=== PATIENT | male | born 1945 | race Caucasian/White ===

== ENCOUNTER 2017-08-02 10:36 | Observation (INO) | payer MEDICARE, OTHER ==
[2017-08-02] MEDS ORDERED: DILTIAZEM HCL 5 MG/ML VIAL IV ONE ×2 (10:52→10:54)
[2017-08-02] MEDS ORDERED: ASPIRIN 325 MG TABLET.DR PO ONE (10:54)
[2017-08-02] MEDS ORDERED: ASPIRIN 325 MG TABLET.DR ONE (10:57)
[2017-08-02] MEDS: NITROGLYCERIN 0.4 MG/TAB BTL SL ONE ×2 (10:57→14:38)
[2017-08-02] MEDS ORDERED: DILTIAZEM HCL 125 MG in DEXTROSE 5 % IN WATER 100 ML IV PRN ×2 (11:03)
[2017-08-02 11:20] LABS: Hematocrit 41.8 % (42.0-52.0); Hemoglobin 15.1 gm/dL (13.5-18.0); Mean Cell Volume 85.8 fl (78-100); Mean Corpuscular Hgb Conc 36.1 g/dl (32-36); Mean Platelet Volume 9.9 fl (6.0-9.5); Neutrophil # 4.6 K/mm3 (1.3-6.0); Neutrophil % 66.1 % (42-75.0); Platelet Count 226 K/mm3 (150-450); Prothrombin Time (Patient) 10.1 Seconds (9.0-11.0); Red Blood Count 4.87 M/mm3 (4.7-6.0); Red Cell Distribution Width 12.3 % (11.5-14.0); White Blood Count 6.9 K/mm3 (4.0-10.5)
[2017-08-02 11:21] LABS: INR 1.01 INR (0.90-1.10)
[2017-08-02 11:32] LABS: Troponin I 0.047 ng/ml (0.00-0.10)
[2017-08-02 11:35] LABS: Albumin * 3.7 gm/dl (3.4-5.0); Anion Gap 14.6 mmol/L (6.8-13.8); BUN/Creatinine Ratio 17.1 (9.0-21.6); Bilirubin, Total 0.6 mg/dL (0.0-1.1); Calcium * 9.1 mg/dL (7.9-10.9); Carbon Dioxide 23.7 mmol/L (24-32.6); Potassium 3.3 mmol/L (3.4-4.6)
--- NOTE | 2017-08-02 12:26 | ERNOTE ---
Chest Pain/Cardiac HPI Date of Service: 08/02/17 Chief Complaint: Chest Pain Time Seen by Provider: 08/02/17 10:50 Source: patient Exam Limitations: no limitations Immunizations: IMMUNIZATION HX History of Influenza Vaccine No Hx Pneumococcal Vaccination No Allergies/Adverse Reactions: Allergies testosterone [From AndroGel] Adverse Reaction (Verified 08/02/17 10:52) Itching Home Medications: HOME MEDICATIONS Amlodipine Besylate 10 mg PO DAILY 12/11/13 [Last Taken 12/12/13 09:00] Atorvastatin Calcium 10 mg PO DAILY 12/11/13 [Last Taken 12/11/13 21:00] Irbesartan [Avapro] 300 mg PO DAILY 12/11/13 [Last Taken 12/12/13 09:00] Metoprolol Tartrate [Lopressor] 50 mg PO BID 12/11/13 [Last Taken 12/12/13 09:00 ] Docusate Sodium [Stool Softener] 1 tab PO DAILY 12/12/13 [Last Taken 12/12/13 09 :00] Menthol/Camphor [Sarna Anti-Itch Lotion] 1 applic .ROUTE HS 12/12/13 [Last Taken 12/11/13 21:00] Multivitamin [Multi-Vitamin Daily] 1 tab PO DAILY 12/12/13 [Last Taken 12/12/13 09:00] Pyridoxine HCl (Vitamin B6) [Vitamin B-6] 1 tab PO DAILY 12/12/13 [Last Taken 09:00] Acetaminophen [Tylenol] 650 mg PO QID PRN #0 tablet 12/13/13 [Last Taken Unknown ] Narrative: Patient presents to the ED with chest tightness and SOB. He also had a headache. This started at 1am. It has been constant since then. He denies anything like this in the past. No fever. No abdominal pain. Has not seen anyone else for this before. Nothing makes it better or worse. He presents here and is noted to have a heart rate in the 160s. He does not feel his heart racing. Never had that before. No radiation of the pain in his chest. No diaphoresis. Timing: constant Severity/Quality: severe Location: central Chest Pain Radiation: no radiation Activities at Onset: none Modifying Factors - Improves: Present: nothing Modifying Factors - Worsens: Present: nothing Nitro Today/Relief: no nitro taken today Aspirin Treatment Today: no aspirin today Associated Symptoms: Present: shortness of breath. Absent: cough, fever/chills , palpitations, back pain Prior Treatment: Denies: recently seen Review of Systems - Review of Systems Constitutional: Absent: fever Respiratory: Present: shortness of breath Cardiology: Present: chest pain Gastrointestinal/Abdominal: Absent: abdominal pain Genitourinary: Absent: dysuria Neurological: Absent: weakness All Other Systems: All systems neg except as marked - Patient's Past Medical History Patient History - Medical: No pertinent hx Patient History - Cardiac/Respiratory: Hypertension, Hyperlipidemia Patient History - Cancer: No Hx of Cancer Patient History - Surgical Procedures: Hernia Repair Patient History - Other: None - Social History Living Situations: home Psych History: No pertinent hx Alcohol Use: none Drug Use: none - Immunizations Hx Pneumococcal Vaccination: No History of Influenza Vaccine: No Physical Exam - Physical Exam General Appearance: Present: alert, no apparent distress Head Exam: Present: normal inspection, no evidence of injury Eye Exam: Normal inspection: bilateral, PERRL: bilateral Ears, Nose, Throat: Present: normal ENT inspection Neck: Present: normal inspection Respiratory: Present: no respiratory distress, normal breath sounds, no accessory muscle use, lungs clear Cardiovascular/Chest: Present: normal peripheral pulses, tachycardia, irregularly irregular Gastrointestinal/Abdominal: Present: normal bowel sounds, nontender, soft Back Exam: Absent: CVA tenderness (R), CVA tenderness (L) Extremity Exam: Present: normal range of motion Neurological Exam: Present: alert, normal mood/affect, no motor/sensory deficits , 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 Absent: motor weakness Skin Exam: Present: normal color, warm/dry ED Progress - Results and Orders Patient's Lab Results:: I have reviewed the patient's lab results. - Vital Signs Patient's Vital Signs:: I have reviewed the patient's vital signs. Vital Signs: Vital Signs 08/02/17 08/02/17 08/02/17 10:48 10:54 10:55 Temperature 36.4 C L Pulse Rate 154 H 163 H 163 H Respiratory 14 16 Rate Blood Pressure 112/80 110/70 110/70 O2 Sat by Pulse 94 96 Oximetry 08/02/17 08/02/17 08/02/17 11:10 11:22 11:30 Temperature Pulse Rate 79 93 99 Respiratory 14 13 12 Rate Blood Pressure 96/59 106/55 113/59 O2 Sat by Pulse 96 97 97 Oximetry 08/02/17 11:45 Temperature Pulse Rate 106 H Respiratory 16 Rate Blood Pressure 104/67 O2 Sat by Pulse 94 Oximetry - EKG EKG read: Interp. by me EKG Comments: A fib RVR with LBBB (Old). No clear evidence of STEMI. - X-Ray X-Ray #1 X-Ray: chest Interpretation: Interp. by me X-ray Comments: I reviewed official CXR radiology report. - Progress/Reassessment Chief Complaint: Chest Pain Progress Note-Subjective: 08/02/17 12:24 HR controlled with IV cardizem and Cardizem drip. 10/17 reproducible CP residual after rate control. D/W Dr Hay who will admit the patient to the hospital for further evaluation and management. Stable for transfer to the floor. Departure Clinical Impression: Atrial fibrillation with RVR - Departure Disposition: [facility] Condition: Stable
--- NOTE | 2017-08-02 16:12 | HP ---
Chief Complaint - Chief Complaint Date of Service: 08/02/17 Time of Service: 16:11 Chief Complaint: Chest Pain History of Present Illness: Ant is a 72 yo male with PMH of HTN. He awoke at 130am with headache , chest pain, and shortness of breath. He checked his blood pressure and reports it was about 170/110. He took a couple extra blood pressure medications and waited. Symptoms improved a little but remained. He presented to the [facility] ER with continued symptoms and was found to be in atrial fibrillation with RVR with rate into 160s. He was given 20mg IV diltiazem and started on diltiazem drip. With the diltiazem heart rate improved to under 100 bpm and his symptoms resolved. He currently remains in atrial fibrillation, which is new. He reports no triggers. Yesterday he felt fine. He has not changed medications, diet, or activity. - Patient's Past Medical History Patient History - Medical: No pertinent hx Patient History - Cardiac/Respiratory: Hypertension Patient History - Cancer: No Hx of Cancer Patient History - Surgical Procedures: Hernia Repair Patient History - Other: None - Family History Mother Family History - Medical: Father Family History - Medical: History Unknown Family History - Cardiac/Respiratory: History Unknown Family History - Cancer: History Unknown - Social History Living Situations: alone Psych History: No pertinent hx Smoking Status: Former smoker Have you smoked in the past 12 months: No Do you dip or chew tobacco: Yes Alcohol Use: none Drug Use: none - Immunizations Hx Pneumococcal Vaccination: No History of Influenza Vaccine: No Review Of Systems (GEN) - Review of Systems Generalized/Overall Review: Absent: Weakness, Chills, Fever EENTM: Present: No Symptoms Reported Respiratory: Present: Shortness of Breath. Absent: Cough, Orthopnea Cardiac: Present: Chest Pain, Palpitations. Absent: Edema, Syncope Abdominal: Absent: Nausea, Vomiting, Hematemesis, Abdominal Pain, Constipation Genitourinary: Present: No Symptoms Reported Musculoskeletal: Present: No Symptoms Reported Neurological: Present: Headache. Absent: Anxiety, Depressed Skin: Present: No Symptoms Reported Endocrine: Present: No Symptoms Reported Immunizations: IMMUNIZATION HX History of Influenza Vaccine No Hx Pneumococcal Vaccination No Allergies/Adverse Reactions: Allergies Allergy/AdvReac Type Severity Reaction Status Date / Time testosterone [From AndroGel] AdvReac Itching Verified 08/02/17 10:52 Home Medications: HOME MEDICATIONS Amlodipine Besylate 10 mg PO DAILY 12/11/13 [Last Taken 12/12/13 09:00] Irbesartan [Avapro] 300 mg PO DAILY 12/11/13 [Last Taken 12/12/13 09:00] Docusate Sodium [Stool Softener] 1 tab PO DAILY 12/12/13 [Last Taken 12/12/13 09 :00] Menthol/Camphor [Sarna Anti-Itch Lotion] 1 applic .ROUTE HS 12/12/13 [Last Taken 12/11/13 21:00] Multivitamin [Multi-Vitamin Daily] 1 tab PO DAILY 12/12/13 [Last Taken 12/12/13 09:00] Metoprolol Succinate [Toprol Xl] 100 mg PO DAILY 08/02/17 [Last Taken Unknown] Exam - Exam Vital Signs: Vital Signs - Last Taken Temp 36.4 C L 08/02/17 12:39 Pulse 53 L 08/02/17 12:39 Resp 16 08/02/17 12:39 BP 110/58 08/02/17 12:39 Pulse Ox 95 08/02/17 12:39 Constitutional: Present: Alert, Oriented x3, Cooperative ENT Exam: Present: normal ENT inspection, hearing grossly normal Eye Exam: bilateral eye: normal inspection Respiratory: Present: lungs clear, normal breath sounds Cardiovascular/Chest: Present: no murmur, irregularly irregular Abdomen: Present: Normal bowel sounds, soft, nontender, nondistended, no rebound tenderness, no hepatospenomegaly, no masses Extremity: Present: normal inspection, lower extremity edema - 1+ Skin Exam: Present: normal color, warm/dry, no cyanosis Neurologic: Present: alert, normal mood/affect, oriented x 3 Appearance: Present: appropriate appearance, appropriate insight Eye contact: Present: cooperative, good eye contact, normal speech Thoughts: Present: normal thought pattern, no apparent hallucination Diagnostic Studies: Laboratory Results WBC 6.9 K/mm3 (4.0-10.5) 08/02/17 11:00 RBC 4.87 M/mm3 (4.7-6.0) 08/02/17 11:00 Hgb 15.1 gm/dL (13.5-18.0) 08/02/17 11:00 Hct 41.8 % (42.0-52.0) L 08/02/17 11:00 MCV 85.8 fl (78-100) 08/02/17 11:00 MCH 31.0 pg (27-31) 08/02/17 11:00 MCHC 36.1 g/dl (32-36) H 08/02/17 11:00 RDW 12.3 % (11.5-14.0) 08/02/17 11:00 Plt Count 226 K/mm3 (150-450) 08/02/17 11:00 MPV 9.9 fl (6.0-9.5) H 08/02/17 11:00 Immature Gran % (Auto) 0.30 % (0.001-0.429) 08/02/17 11:00 Immature Gran # (Auto) 0.02 K/mm3 (0.000-0.0310) 08/02/17 11:00 Neutrophils % 66.1 % (42-75.0) 08/02/17 11:00 Lymphocytes % 22.9 % (20-51) 08/02/17 11:00 Monocytes % 7.8 % (0.0-9) 08/02/17 11:00 Eosinophils % 2.3 % (0.0-3.0) 08/02/17 11:00 Basophils % 0.6 % (0.0-1.0) 08/02/17 11:00 Nucleated RBC % 0.0 k/mm3 (0-1) 08/02/17 11:00 Neutrophils # 4.6 K/mm3 (1.3-6.0) 08/02/17 11:00 Lymphocytes # 1.6 k/mm3 (1.5-3.5) 08/02/17 11:00 Monocytes # 0.5 k/mm3 (0.0-1.0) 08/02/17 11:00 Eosinophils # 0.2 k/mm3 (0.0-0.7) 08/02/17 11:00 Absolute Basophils 0.0 k/mm3 (0.0-0.1) 08/02/17 11:00 PT 10.1 Seconds (9.0-11.0) 08/02/17 11:00 INR (Anticoag Therapy) 1.01 INR (0.90-1.10) 08/02/17 11:00 Sodium 143 mmol/L (132-142) H 08/02/17 11:00 Plasma Sodium 145 mmol/L (130-142) H 08/02/17 11:00 Potassium 3.3 mmol/L (3.4-4.6) L D 08/02/17 11:00 Chloride 108 mmol/L (97-106) H 08/02/17 11:00 Carbon Dioxide 23.7 mmol/L (24-32.6) L 08/02/17 11:00 Anion Gap 14.6 mmol/L (6.8-13.8) H 08/02/17 11:00 BUN 26 mg/dL (6-23) H 08/02/17 11:00 Creatinine 1.52 mg/dL (0.4-1.4) H 08/02/17 11:00 Est GFR (Non-Af Amer) 48 mL/min (60-130) L 08/02/17 11:00 BUN/Creatinine Ratio 17.1 (9.0-21.6) 08/02/17 11:00 Random Glucose 217 mg/dL (70-110) H 08/02/17 11:00 Calcium 9.1 mg/dL (7.9-10.9) 08/02/17 11:00 Calcium Adj for Albumin 9.0 mg/dL (8.4-10.2) 08/02/17 11:00 Total Bilirubin 0.6 mg/dL (0.0-1.1) 08/02/17 11:00 AST 23 U/L (0-48) 08/02/17 11:00 ALT 29 U/L (19-67) 08/02/17 11:00 Alkaline Phosphatase 71 U/L (50-170) 08/02/17 11:00 Troponin I 0.047 ng/ml (0.00-0.10) 08/02/17 11:00 B-Natriuretic Peptide 1492 pg/mL (5-350) H 08/02/17 11:00 Total Protein 7.0 gm/dL (6.2-8.2) 08/02/17 11:00 Albumin 3.7 gm/dl (3.4-5.0) 08/02/17 11:00 Assessment/Plan - Narrative Narrative: Ant is a 72 yo male with: 1) New onset atrial fibrillation with rapid ventricular response - Will evaluate with TSH. Chest xray normal. Will need echocardiogram. Unknown etiology at this time. BMP shows hypernatremia, potentially a little dry with elevated creatinine slightly above normal. Will give 0.5NS at 75ml/hr. Will treat with slower rate due to possible concern for heart failure with elevated BNP, although chest xray does not show pulmonary edema. Will continue IV diltiazem drip and work to titrate off. Will start oral diltiazem by stacking dose at 30mg PO every 6 hours, will adjust as needed based on heart rate/blood pressure. Once starting oral diltiazem will work to wean off of drip. Will monitor on telemetry. Onset of atrial fibrillation is estimated at 0130 on 08/02, although not exactly sure. If he does not convert to normal sinus rhythm overnight could consider cardioverting. However as I am unsure as to the exact onset of atrial fibrillation could consider anticoagulation with follow up with cardiology for outpatient cardioversion after an acceptable course of anticoagulation. 2) Chest Pain - Negative initial work up for OH with no acute changes on EKG and no elevation of troponin. Will recheck in 6 hours from first. Patient is symptom free at this time. 3) Will admit to observation over night. If heart rate remains or converts may be able to discharge to home tomorrow. If heart rate is unstable may need additional length of stay for treatment and stabilization of heart rate. - Assessment/Plan (1) New onset atrial fibrillation Problem: Acute (2) Atrial fibrillation with RVR Problem: Acute
[2017-08-02] MEDS: 0.5 NORMAL SALINE 1,000 ML IV PRN (17:36)
[2017-08-02] MEDS: DILTIAZEM HCL 30 MG TABLET PO SCH ×2 (17:38→21:25)
[2017-08-02] MEDS: ENOXAPARIN SODIUM 100 MG/ML SYRG SC SCH (21:25)
[2017-08-03] MEDS: DILTIAZEM HCL 30 MG TABLET PO SCH (04:41)
[2017-08-03 05:44] LABS: Hematocrit 37.8 % (42.0-52.0); Hemoglobin 13.4 gm/dL (13.5-18.0); Mean Cell Volume 87.3 fl (78-100); Mean Corpuscular Hemoglobin 30.9 pg (27-31); Mean Corpuscular Hgb Conc 35.4 g/dl (32-36); Mean Platelet Volume 9.6 fl (6.0-9.5); Neutrophil # 2.5 K/mm3 (1.3-6.0); Platelet Count 146 K/mm3 (150-450); Red Blood Count 4.33 M/mm3 (4.7-6.0); Red Cell Distribution Width 12.4 % (11.5-14.0); White Blood Count 4.9 K/mm3 (4.0-10.5)
[2017-08-03 06:08] LABS: Albumin * 3.3 gm/dl (3.4-5.0); Anion Gap 13.6 mmol/L (6.8-13.8); BUN/Creatinine Ratio 17.9 (9.0-21.6); Bilirubin, Total 0.5 mg/dL (0.0-1.1); Ca. Corrected For Albumin 8.9 mg/dL (8.4-10.2); Calcium * 8.7 mg/dL (7.9-10.9); Carbon Dioxide 24.6 mmol/L (24-32.6); Potassium 3.2 mmol/L (3.4-4.6); TSH * 1.919 uIU/mL (0.358-3.74); Total Protein 6.2 gm/dL (6.2-8.2)
[2017-08-03] MEDS: 0.5 NORMAL SALINE 1,000 ML IV PRN (06:56)
[2017-08-03] MEDS ORDERED: POTASSIUM CHLORIDE 20 MEQ TABLET.SA PO ONE (07:01)
[2017-08-03] MEDS: ENOXAPARIN SODIUM 100 MG/ML SYRG SC SCH (08:04)
[2017-08-03] MEDS ORDERED: METOPROLOL SUCCINATE 100 MG TABLET.SA PO SCH (09:00)
[2017-08-03] MEDS ORDERED: LOSARTAN POTASSIUM 50 MG TABLET PO SCH (09:00)
[2017-08-03] MEDS ORDERED: ASPIRIN 325 MG TABLET.DR PO SCH (09:00)
[2017-08-03] MEDS ORDERED: amLODIPine BESYLATE 10 MG TABLET PO SCH (09:00)
[2017-08-03] MEDS ORDERED: DOCUSATE SODIUM 100 MG CAPSULE PO SCH (09:00)
[2017-08-03] MEDS ORDERED: DILTIAZEM HCL 120 MG CAP.SR.24H PO SCH (09:00)
--- NOTE | 2017-08-03 11:43 | DS ---
(1) New onset atrial fibrillation Problem: Resolved (2) Atrial fibrillation with RVR Problem: Resolved Description of Stay: Ant is a 72 yo male that was admitted for new onset atrial fibrillation with rapid ventricular response. He was given IV diltiazem and placed on a drip. He was monitored on telemetry in the ICU. He converted to normal sinus rhythm within the first 24 hours. He was weaned of diltiazem drip to oral diltiazem and continued to do well. He was discharged to home on diltiazem and amlodipine was discontinued. He will follow up in clinic in one week. He is low risk and will be treated with aspirin for stroke prevention. Will obtain outpatient echocardiogram. Unclear at this time if he has paroxysmal atrial fibrillation or a single episode. Procedures Performed: none Discharge Disposition: Home self care Disposition: Home self-care Condition: Good Discharge Activity: Activity as tolerated Discharge Diet: Low salt Referrals: Shubham Hay DO [Primary Care Provider] - One Week Problem Oriented Discharge Instructions to Patient/Family: Atrial Fibrillation , [id number] Additional Patient Instructions (free text): Stop Amlodipine, it will be replaced by diltiazem. Start taking a daily Aspirin 325mg Daily. Follow up appointment with Dr. Hay on 08/13/17 at 2:00pm. Electrocardiogram scheduled outpatient on 08/07/17 at 9:00am. Prescriptions (Any new or edited meds): Aspirin [Aspirin Enteric Coated] 325 mg PO DAILY #30 tablet. Diltiazem HCl [Cardizem Cd] 120 mg PO Q24H #30 cap.sr.24h Complete Home Medications List: Complete Home Medication List: Irbesartan [Avapro] 300 mg PO DAILY 12/11/13 Docusate Sodium [Stool Softener] 1 tab PO DAILY 12/12/13 Menthol/Camphor [Sarna Anti-Itch Lotion] 1 applic .ROUTE HS 12/12/13 Multivitamin [Multi-Vitamin Daily] 1 tab PO DAILY 12/12/13 Metoprolol Succinate [Toprol Xl] 100 mg PO DAILY 08/02/17 Aspirin [Aspirin Enteric Coated] 325 mg PO DAILY #30 tablet. 08/03/17 Diltiazem HCl [Cardizem Cd] 120 mg PO Q24H #30 cap.sr.24h 08/03/17 Metoprolol Succinate [Toprol Xl] 100 mg PO DAILY #0 tablet.sa 08/03/17 Amb Orders for Discharge: US Echocardiogram Complete * Location: Determined By Patient
[2017-08-03 12:36] VITALS: BP 146/82
== END 2017-08-03 13:32 | disposition home or self-care (01) ==
LOC: ER 10:36 → MS 11:55 → SCU 17:00
PROVIDERS: ADMIT Family Medicine; ATTEND Family Medicine
DX: I48.0 Paroxysmal atrial fibrillation (principal); I10 Essential (primary) hypertension; E78.5 Hyperlipidemia, unspecified; Z87.891 Personal history of nicotine dependence; Z68.32 Body mass index [BMI] 32.0-32.9, adult
CPT/HCPCS: 36415; 71020; 80053; 83880; 84443; 84484; 85025; 85610; 93005; 96365; 96375; 96376; 99285; G0378